=== PATIENT | female | born 1960 | race Caucasian/White ===

== ENCOUNTER 2024-11-11 21:01 | Emergency (ER) | payer BC ==
[~2024-11-11] VITALS: Ht 152.4 cm; Wt 132.0 kg
[2024-11-11 21:04] VITALS: BP 189/86; TEMP 97.9; O2SAT 99
== END 2024-11-12 01:24 | disposition home or self-care (01) ==
LOC: M ED 21:01
DX: S09.90XA Unspecified injury of head, initial encounter (principal); W01.198A Fall on same level from slipping, tripping and stumbling with subsequent striking against other object, initial encounter; C50.919 Malignant neoplasm of unspecified site of unspecified female breast; Y92.9 Unspecified place or not applicable; Y93.89 Activity, other specified; Y99.9 Unspecified external cause status; Z86.79 Personal history of other diseases of the circulatory system; Z88.0 Allergy status to penicillin; Z88.2 Allergy status to sulfonamides; Z88.1 Allergy status to other antibiotic agents; Z88.8 Allergy status to other drugs, medicaments and biological substances